=== PATIENT | female | born 1935 | race Two or more races ===

== ENCOUNTER → 2017-07-04 | Outpatient (CLI) | payer OTHER | LOC: FIMAGING 13:51 → EDSTATUS 13:52 | PROVIDERS: ATTEND Internal Medicine | DX: J98.4 Other disorders of lung (principal); I70.90 Unspecified atherosclerosis; M81.0 Age-related osteoporosis without current pathological fracture; R76.11 Nonspecific reaction to tuberculin skin test without active tuberculosis ==

== ENCOUNTER 2017-10-18 17:28 | Observation (INO) | payer OTHER ==
[2017-10-18] MEDS ORDERED: NS 500 ML IV ONE (18:00)
[2017-10-18 18:56] LABS: PLATELET COUNT 246 10^3/uL (150-400)
--- NOTE | 2017-10-18 19:16 | EDPHY ---
HPI/HX/ROS/PE/MDM Narrative: CHIEF COMPLAINT: Weakness, abnormal ECG HISTORY OF PRESENT ILLNESS: This patient is an 82 y/o female with history of hypertension arriving at the request of her primary care provider for evaluation of weakness and an abnormal EKG. Today, she visited her PCP for a routine followup. She happened to be feeling poorly today, which she describes as primarily weakness. She was noted to be in atrial flutter during her visit. She denies any known history of atrial flutter or atrial fibrillation. Currently, the patient feels completely normal. She denies fever, chills, chest pain, shortness of breath, palpitations , vomiting, diarrhea, urinary complaints, headache, lightheadedness. REVIEW OF SYSTEMS: Aside from elements discussed in the HPI, a comprehensive 10-point review of systems was reviewed and is negative. PAST MEDICAL HISTORY: Hypertension (HCTZ) SOCIAL HISTORY: , at bedside. 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 VITAL SIGNS: Reviewed by me GENERAL: Well-developed, well-nourished, resting comfortably in no respiratory distress. HEENT: Atraumatic. Eyes: No icterus, no injection. Mouth: moist mucous membranes. No erythema or lesions. Neck: supple with no adenopathy. LUNGS: Clear to auscultation bilaterally, no wheezes, rhonchi or rales. CARDIAC: Irregularly irregular rhythm. No rubs, murmurs or gallops. ABDOMEN: Soft, nontender, nondistended, bowel sounds normal. BACK: No CVA tenderness. EXTREMITIES: No trauma. No edema. Range of motion is normal throughout. NEURO: Alert and oriented, grossly nonfocal. SKIN: Warm and dry, no rash. PSYCHIATRIC: Normal mentation, no agitation. Portions of this note were transcribed by a phlebotomist medical lab assistant. I personally performed a history, physical exam, medical decision making, and confirmed accuracy of information the transcribed note. ED Course: 82 y/o female presents for evaluation of weakness, new-onset atrial flutter. Plan for EKG. Plan for labs including CBC, chemistries, troponin. Discussed possibility of admission for evaluation of new-onset atrial flutter. The patient and her are amenable to this. 12-LEAD EKG: Please see the full report in [facility]. My interpretation: Atrial flutter with variable rate. POC troponin negative. Labs otherwise unremarkable. 19:49 Spoke with hospitalist service. Dr. Vazquez accepts admission for atrial flutter, atrial fibrillation. He recommends single dose of Lovenox this evening and patient will see Cardiology in the morning for consideration of conversion. MDM: Differential diagnoses for the patient's sensation of palpitations was considered including but not limited to sinus tachycardia, PACs, PVCs, SVT, atrial fibrillation, atrial flutter, anxiety, panic attack. - Data Points Laboratory Results: Laboratory Results 10/18/17 18:30 10/18/17 18:30 10/18/17 10/18/17 10/18/17 18:37 18:30 18:30 WBC RBC Hgb Hct MCV MCH MCHC RDW Plt Count MPV Neut % (Auto) Lymph % (Auto) [place] % (Auto) Eos % (Auto) Baso % (Auto) Nucleat RBC Rel Count Absolute Neuts (auto) Absolute Lymphs (auto) Absolute Monos (auto) Absolute Eos (auto) Absolute Basos (auto) Absolute Nucleated RBC Immature Gran % Immature Gran # Sodium 137 mEq/L mEq/L (135-145) Potassium 4.1 mEq/L mEq/L (3.3-5.0) Chloride 104 mEq/L mEq/L (97-110) Carbon Dioxide 24 mEq/l mEq/l (22-31) Anion Gap 9 mEq/L mEq/L (8-16) BUN 18 mg/dL mg/dL (7-23) Creatinine 0.6 mg/dL mg/dL (0.6-1.0) Estimated GFR > 60 Glucose 81 mg/dL mg/dL (70-100) Calcium 9.6 mg/dL mg/dL (8.5-10.4) Magnesium 2.0 mg/dL mg/dL (1.6-2.3) POC Troponin I 0.01 ng/mL ng/mL (0.00-0.08) 10/18/17 18:30 WBC 5.81 10^3/uL 10^3/uL (3.80-9.50) RBC 4.70 10^6/uL 10^6/uL (4.18-5.33) Hgb 14.0 g/dL g/dL (12.6-16.3) Hct 41.4 % % (38.0-47.0) MCV 88.1 fL fL (81.5-99.8) MCH 29.8 pg pg (27.9-34.1) MCHC 33.8 g/dL g/dL (32.4-36.7) RDW 13.4 % % (11.5-15.2) Plt Count 246 10^3/uL 10^3/uL (150-400) MPV 10.3 fL fL (8.7-11.7) Neut % (Auto) 39.4 % % (39.3-74.2) Lymph % (Auto) 48.7 % H % (15.0-45.0) [place] % (Auto) 9.0 % % (4.5-13.0) Eos % (Auto) 1.7 % % (0.6-7.6) Baso % (Auto) 1.0 % % (0.3-1.7) Nucleat RBC Rel Count 0.0 % % (0.0-0.2) Absolute Neuts (auto) 2.29 10^3/uL 10^3/uL (1.70-6.50) Absolute Lymphs (auto) 2.83 10^3/uL 10^3/uL (1.00-3.00) Absolute Monos (auto) 0.52 10^3/uL 10^3/uL (0.30-0.80) Absolute Eos (auto) 0.10 10^3/uL 10^3/uL (0.03-0.40) Absolute Basos (auto) 0.06 10^3/uL 10^3/uL (0.02-0.10) Absolute Nucleated RBC 0.00 10^3/uL 10^3/uL (0-0.01) Immature Gran % 0.2 % % (0.0-1.1) Immature Gran # 0.01 10^3/uL 10^3/uL (0.00-0.10) Sodium Potassium Chloride Carbon Dioxide Anion Gap BUN Creatinine Estimated GFR Glucose Calcium Magnesium POC Troponin I Medications Given: Potassium Chloride/Sodium Chloride (Ns W/ 20 Kcl/L) 1,000 mls @ 100 mls/hr IV CONT STEPHANIE Stop: 04/16/18 23:54 Last Admin: 10/18/17 23:03 Dose: 1,000 mls Discontinued Medications Sodium Chloride (Ns) 500 mls @ 1,000 mls/hr IV EDNOW ONE PRN Reason: Protocol Stop: 10/18/17 18:29 Last Admin: 10/18/17 18:13 Dose: 500 mls Point of Care Test Results: Chemistry 10/18/17 18:37 POC Troponin I 0.01 ng/mL ng/mL (0.00-0.08) General Time Seen by Provider: 10/18/17 17:48 Initial Vital Signs: Initial Vital Signs Temperature (C) 36.4 C 10/18/17 17:36 Heart Rate 82 10/18/17 17:36 Respiratory Rate 18 10/18/17 17:36 Blood Pressure 150/93 H 10/18/17 17:36 O2 Sat (%) 98 10/18/17 17:36 O2 Delivery Mode Room Air Allergies/Adverse Reactions: No Known Allergies Allergy (Verified 10/18/17 17:34) Home Medications: Medication Instructions Recorded Acetaminophen [Tylenol 325mg (*)] 325 mg PO DAILY PRN 10/18/17 Cholecalciferol Vit D3 [Vitamin D3 1,000 units PO DAILY 10/18/17 (*)] Herbals/Supplements -Info Only 1 ea PO DAILY 10/18/17 Hydrochlorothiazide [HCTZ (*)] 25 mg PO DAILY 10/18/17 Departure - Departure Disposition: [facility] Inpatient Acute Clinical Impression: Atrial flutter Qualifiers: Atrial flutter type: unspecified Qualified Code(s): I48.92 - Unspecified atrial flutter Atrial fibrillation Qualifiers: Atrial fibrillation type: unspecified Qualified Code(s): I48.91 - Unspecified atrial fibrillation Condition: Fair Report Scribed for: Vivi Vasquez Report Scribed by: Karen Cuello Date of Report: 10/18/17 Time of Report: 19:31
[2017-10-18] MEDS ORDERED: ONDANSETRON 4 MG/2 ML VIAL IVP PRN (19:50)
[2017-10-18] MEDS ORDERED: ACETAMINOPHEN 325 MG TAB PO PRN (19:50)
[2017-10-18] MEDS ORDERED: ONDANSETRON DISINTEGRATING 4 MG TAB PO PRN (19:50)
--- NOTE | 2017-10-18 22:38 | CPEKG ---
Test Reason : OPEN Blood Pressure : / mmHG Vent. Rate : 074 BPM Atrial Rate : 341 BPM P-R Int : 060 ms QRS Dur : 086 ms QT Int : 355 ms P-R-T Axes : 000 014 -34 degrees QTc Int : 394 ms Atrial fibrillation , atrial flutter Nonspecific T abnormalities, inferior leads Confirmed by Vivi Vasquez ([id number]) on 10/18/2017 10:37:41 PM Referred By: Confirmed By:Vivi Vasquez
[2017-10-18] MEDS: NS W/ 20 KCl/L 1,000 ML IV SCH (23:03)
--- NOTE | 2017-10-18 23:37 | PDGENHP ---
History and Physical - Chief Complaint Palpitations - History of Present Illness 82 yo F w/ hx of HTN presents from PCP office with reports of arrhythmia. Patient had a general checkup today. She felt fatigued this morning with some palpitations. Her PCP check an ECG and noted Aflutter with variable block so she was sent to the ED for further evaluation. The patient denies any symptoms to me at the time of my evaluation despite still being in Aflutter on the monitor. She tells me she occasionally feels this weakness and palpitations but that the feeling usually passes as it did today. She has no prior formal diagnosis of arrhythmia. Case discussed with Dr. Vazquez, records reviewed in EMR. History Information - Allergies/Home Medication List Allergies/Adverse Reactions: No Known Allergies Allergy (Verified 10/18/17 17:34) Home Medications: Acetaminophen [Tylenol 325mg (*)] 325 mg PO DAILY PRN 10/18/17 [Last Taken Unknown] Cholecalciferol Vit D3 [Vitamin D3 (*)] 1,000 units PO DAILY 10/18/17 [Last Taken 10/18/17] Herbals/Supplements -Info Only 1 ea PO DAILY 10/18/17 [Last Taken Unknown] Hydrochlorothiazide [HCTZ (*)] 25 mg PO DAILY 10/18/17 [Last Taken 10/18/17] I have personally reviewed and updated: family history, medical history - Past Medical History hypertension - Surgical History Reports: no pertinent surgical hx - Family History Additional family history: Valvular disease - Social History Smoking Status: Never smoked Review of Systems Review of Systems: ROS: 10pt was reviewed & negative except for what was stated in HPI & below Physical Exam Physical Exam: Temp Pulse Resp BP Pulse Ox 36.4 C 91 16 152/99 H 98 10/18/17 21:15 10/18/17 23:12 10/18/17 21:15 10/18/17 21:15 10/18/17 21:15 Constitutional: no apparent distress, not in pain Eyes: PERRL, EOMI Ears, Nose, Mouth, Throat: moist mucous membranes, no oral mucosal ulcers Cardiovascular: no murmur, rub, or gallop, irregularly irregular Respiratory: no respiratory distress, clear to auscultation Gastrointestinal: normoactive bowel sounds, soft, non-tender abdomen Skin: warm, normal color Musculoskeletal: full muscle strength, no muscle tenderness Neurologic: AAOx3, CN II-XII Intact Psychiatric: interacting appropriately, not anxious Lab Data & Imaging Review 10/18/17 18:30 10/18/17 18:30 WBC 5.81 10^3/uL (3.80-9.50) 10/18/17 18:30 RBC 4.70 10^6/uL (4.18-5.33) 10/18/17 18:30 Hgb 14.0 g/dL (12.6-16.3) 10/18/17 18:30 Hct 41.4 % (38.0-47.0) 10/18/17 18:30 MCV 88.1 fL (81.5-99.8) 10/18/17 18: MCH 29.8 pg (27.9-34.1) 10/18/17 18: MCHC 33.8 g/dL (32.4-36.7) 10/18/17 18: RDW 13.4 % (11.5-15.2) 10/18/17 18: Plt Count 246 10^3/uL (150-400) 10/18/17 18:30 MPV 10.3 fL (8.7-11.7) 10/18/17 18:30 Neut % (Auto) 39.4 % (39.3-74.2) 10/18/17 18: Lymph % (Auto) 48.7 % (15.0-45.0) H 10/18/17 18:30 [place] % (Auto) 9.0 % (4.5-13.0) 10/18/17 18: Eos % (Auto) 1.7 % (0.6-7.6) 10/18/17 18:30 Baso % (Auto) 1.0 % (0.3-1.7) 10/18/17 18: Nucleat RBC Rel Count 0.0 % (0.0-0.2) 10/18/17 18:30 Absolute Neuts (auto) 2.29 10^3/uL (1.70-6.50) 10/18/17 18:30 Absolute Lymphs (auto) 2.83 10^3/uL (1.00-3.00) 10/18/17 18: Absolute Monos (auto) 0.52 10^3/uL (0.30-0.80) 10/18/17 18:30 Absolute Eos (auto) 0.10 10^3/uL (0.03-0.40) 10/18/17 18:30 Absolute Basos (auto) 0.06 10^3/uL (0.02-0.10) 10/18/17 18:30 Absolute Nucleated RBC 0.00 10^3/uL (0-0.01) 10/18/17 18:30 Immature Gran % 0.2 % (0.0-1.1) 10/18/17 18:30 Immature Gran # 0.01 10^3/uL (0.00-0.10) 10/18/17 18:30 Sodium 137 mEq/L (135-145) 10/18/17 18:30 Potassium 4.1 mEq/L (3.3-5.0) 10/18/17 18:30 Chloride 104 mEq/L (97-110) 10/18/17 18:30 Carbon Dioxide 24 mEq/l (22-31) 10/18/17 18:30 Anion Gap 9 mEq/L (8-16) 10/18/17 18:30 BUN 18 mg/dL (7-23) 10/18/17 18:30 Creatinine 0.6 mg/dL (0.6-1.0) 10/18/17 18:30 Estimated GFR > 60 10/18/17 18:30 Glucose 81 mg/dL (70-100) 10/18/17 18:30 Calcium 9.6 mg/dL (8.5-10.4) 10/18/17 18:30 Magnesium 2.0 mg/dL (1.6-2.3) 10/18/17 18:30 POC Troponin I 0.01 ng/mL (0.00-0.08) 10/18/17 18:37 Visualized and Interpreted EKG results: Yes EKG Interpretation: Positive for: other (Aflutter) Assessment & Plan Assessment: 82 yo F w/ hx of HTN presents with Aflutter. Plan: 1. Aflutter - New diagnosis for this patient; time of onset is unclear as patient tells me she occasionally experiences palpitations and has for some time. She felt fatigued this morning but is now asymptomatic despite ongoing flutter on the monitor. She is rate controlled and hemodynamically stable without medication. [id number] of 4 for HTN, age, and female sex. - Admit for observation - Monitor on telemetry, trend cardiac enzymes - TTE for further evaluation - Will consult cardiology to consider next steps 2. HTN - Continue home medications pending reconciliation. Diet - NPO @ MN in case of cardioversion Code - Full Ppx - LMWH Dispo - Admit under observation status
[2017-10-19] MEDS: NS W/ 20 KCl/L 1,000 ML IV SCH (09:00)
[2017-10-19] MEDS ORDERED: ENOXAPARIN 60 MG/0.6 ML SYR SC SCH (09:45)
--- NOTE | 2017-10-19 14:54 | PDDCSUM ---
Discharge Summary Discharge Summary: Admission Date: 10/18/2017 Discharge Date: 10/19/2017 Admission/Discharge Diagnoses: A Flutter, Moderate MR, Severe TR Consults: Cardiology Procedures: TTE Followup: Cardiology, CTS Hospital Course: Mrs. Oquendo is an 82 yo F who presented to [facility] for evaluation of newly diagnosed A Flutter. Patient reports she has been experiencing intermittent palpitations. She presented to PCP where EKG was performed which showed A Flutter with HR in 80's. Cardiology was consulted who recommended patient be placed on Elaquis due to elevated CHADsVASC score and low dose Metoprolol. She is to followup with Cardiology as an OP to determine definite management for A Flutter. TTE was also performed which showed normal EF, moderate MR, mod-severe TR, dilated R and L atria. CT surgery is to followup with patient as an OP for valve replacement evaluation. Time spent on discharge was >35 minutes with >50% of time spent on patient education/counseling.
--- NOTE | 2017-10-19 15:21 | ECHO ---
[email or web address] [address] [address] Main: [phone] Fax: Transthoracic Echocardiogram Name: SWAPNA TSANG MR#: [id number] Study Date: 10/19/2017 Study Time: 07:46 AM Date of : 1935 Age: 82 year(s) Height: 152.4 cm (60 in.) Weight: 53.07 kg (117 lb.) BSA: 1.49 m2 Gender: Female Examination: Echo Indication: New Afib/flutter Image Quality: Contrast: Requested by: Toni James BP: 140 mmHg/86 mmHg Heart Rate: Rhythm: Indication: New Afib/flutter Procedure Staff Template Worker: Jihan Boone [place] Reading Physician: Cuauhtemoc Galindo MD Requesting Provider: Conclusions: Normal size left ventricle. The ejection fraction is estimated to be 60-65 %. No regional wall motion abnormality. Normal diastolic LV function. The left atrium is moderately dilated. The right atrium is mildly dilated. Mild mitral valve leaflet calcification is present. Moderate mitral valve regurgitation is present. Borderline posterior mitral leaflet prolapse.. Mild aortic cusp calcification is noted. Trivial aortic valve regurgitation. Moderate to severe tricuspid valve regurgitation. The pulmonary artery pressure is normal. No prior study for comparison. Measurements: Chambers Valvular Assessment AV/MV Valvular Assessment TV/PV Normal Normal Normal Name Value Range Name Value Range Name Value Range Ao Yessi (MM): 2.8 cm (2.2 cm-3.7 AV Vmax: 0.97 m/s (1 m/s-1.7 TR Vmax: 2.55 mm/s ( - ) cm) m/s) TR PGmax: 26 mmHg ( - ) IVSd (2D): 0.7 cm (0.6 cm-1.1 AV meanP mmHg ( - ) syst. PAP: 31 mmHg ( - ) cm) HIRA (VTI): 1.4 cm ( - ) LVDd (2D): 4.3 cm (3.9 cm-5.3 MV E Vmax: 0.79 m/s ( - ) cm) MV A Vmax: 0.36 m/s ( - ) LVDs (2D): 3.0 cm (2.1 cm-4 MV E/A: 2.19 ( - ) cm) MV meanP mmHg ( - ) LVPWd (2D): 0.6 cm ( - ) MVA (Vmax): 1.6 m/s ( - ) LVOTd 1.8 cm 1.8 cm mm LVEF (MOD4): 63 % (>=55 %) Patient: SWAPNA TSANG Study Date: 10/19/2017 Page 1 of 2 07:46 AM EF Range: 60-65 % Continued Measurements: Chambers Valvular Assessment AV/MV Valvular Assessment TV/PV Name Value Name Value Name Value LADs: 3.5 cm MV Annulus: 2.8 cm CVP (est.): 5 mmHg LADs Lon.6 cm MV E/E' Lateral: 6.90 LA Area: 22.3 cm2 MV VTI: 19.10 cm MR Vena Contracta: 0.6 cm MR PISA radius: 8 mm Findings: Left Ventricle: Normal size left ventricle. No LV hypertrophy. Normal global systolic LV function. The ejection fraction is estimated to be 60-65 %. No regional wall motion abnormality. Normal diastolic LV function. Right Ventricle: Normal size right ventricle. Left Atrium: The left atrium is moderately dilated. Right Atrium: The right atrium is mildly dilated. Mitral Valve: Mild mitral valve leaflet calcification is present. Moderate mitral valve regurgitation is present. Borderline posterior mitral leaflet prolapse.. Aortic Valve: The aortic valve is tri-leaflet. Mild aortic cusp calcification is noted. Trivial aortic valve regurgitation. Tricuspid Valve: The tricuspid valve is normal in appearance and function. Moderate to severe tricuspid valve regurgitation. The pulmonary artery pressure is normal. Pulmonic Valve: The pulmonic valve is normal in appearance and function. Trivial pulmonic valve regurgitation. Aorta: The aorta is normal. Pericardium: No pericardial effusion. (No Signature Object) Patient: SWAPNA TSANG Study Date: 10/19/2017 Page 2 of 2 07:46 AM [id number]
--- NOTE | 2017-10-19 16:02 | PDCARCONS ---
Cardiology Consult Reason for Consult: Newly noted atrial flutter with symptoms Chief Complaint: palpitations Requesting Physician: hospitalist team History of Present Illness: Patient is a 82 year old female with a history of HTN though no other significant past medical history including DM, CAD, or HLP who presented to ER yesterday for new onset aflutter ([id number] score of 4 for HTN, age, and sex, started on lovenox). Yesterday patient had a 15 minute episode of weakness and "tremor through her body" at rest. She did not have diaphoresis, chest pain or pressure, syncope, lightheadedness, or dyspnea during event. She had a routine appointment with her PCP later in the day and EKG showed aflutter, prompting referral to ER. She has had infrequent palpitations for several years that happen less than once a month and don't seem to be triggered by anything. They seem to be happening more frequently and this was the worst she had experienced. Patient has never seen quality assurance/r&d lab technician or had a workup for these palpitations. She is taking HCTZ as directed for her HTN and does not take any other medications. Heart rate during her hospital stay has been controlled (80s ) with blood pressures elevated (140-150/80s mmHg). Patient has no symptoms today including palpitations though she remains in aflutter rhythm. Patient was given lovenox. Echo 10/19/17 showed moderate to severe mitral regurgitation and tricuspid regurgitation with enlarged atria bilaterally. Remainder of 12 point review of systems was unremarkable History Information - Allergies/Home Medication List Allergies/Adverse Reactions: No Known Allergies Allergy (Verified 10/18/17 17:34) Home Medications: Acetaminophen [Tylenol 325mg (*)] 325 mg PO DAILY PRN 10/18/17 [Last Taken Unknown] Cholecalciferol Vit D3 [Vitamin D3 (*)] 1,000 units PO DAILY 10/18/17 [Last Taken 10/18/17] Herbals/Supplements -Info Only 1 ea PO DAILY 10/18/17 [Last Taken Unknown] Hydrochlorothiazide [HCTZ (*)] 25 mg PO DAILY 10/18/17 [Last Taken 10/18/17] I have personally reviewed and updated: family history, medical history, social history, surgical history Past Medical History: - Past Medical History atrial fibrillation (atrial flutter), hypertension - Surgical History Reports: no pertinent surgical hx - Family History Positive for: non-pertinent - Social History Smoking Status: Never smoked Alcohol Use: None Drug Use: None Cardiac History - Cardiac History Past Cardiac History: MVR, TVR Cardiac Risk Factors: hypertension (>140/90), age > 65 Timing/Duration: Days Severity: moderate Severity Scale: 4 Modifying Factors: improves with: rest Associated Symptoms: weakness Age in Years: 75 or older Sex: Female Congestive Heart Failure History: No Hypertension History: Yes Stroke/TIA/Thromboembolism History: No Vascular Disease History: No Diabetes Mellitus: No [id number] Score: 4 Physical Exam Physical Exam: Temp Pulse Resp BP Pulse Ox 36.5 C 86 18 150/87 H 97 10/19/17 11:25 10/19/17 11:25 10/19/17 11:25 10/19/17 11:25 10/19/17 11:25 Constitutional: no apparent distress, appears nourished, not in pain Eyes: PERRL, EOMI Ears, Nose, Mouth, Throat: moist mucous membranes, hearing normal Cardiovascular: irregularly irregular, pulses symmetric bilaterally, No JVD, No edema Peripheral Pulses: 2+: dorsalis-pedis (R), dorsalis-pedis (L) Respiratory: no respiratory distress, clear to auscultation Gastrointestinal: normoactive bowel sounds Skin: warm Musculoskeletal: full muscle strength, normal joint ROM Neurologic: AAOx3, sensation intact bilaterally Psychiatric: interacting appropriately, anxious Lab and Imaging 10/18/17 18:30 10/19/17 03:28 WBC 5.81 10^3/uL (3.80-9.50) 10/18/17 18:30 RBC 4.70 10^6/uL (4.18-5.33) 10/18/17 18:30 Hgb 14.0 g/dL (12.6-16.3) 10/18/17 18:30 Hct 41.4 % (38.0-47.0) 10/18/17 18:30 MCV 88.1 fL (81.5-99.8) 10/18/17 18:30 MCH 29.8 pg (27.9-34.1) 10/18/17 18:30 MCHC 33.8 g/dL (32.4-36.7) 10/18/17 18:30 RDW 13.4 % (11.5-15.2) 10/18/17 18:30 Plt Count 246 10^3/uL (150-400) 10/18/17 18:30 MPV 10.3 fL (8.7-11.7) 10/18/17 18:30 Neut % (Auto) 39.4 % (39.3-74.2) 10/18/17 18:30 Lymph % (Auto) 48.7 % (15.0-45.0) H 10/18/17 18:30 [place] % (Auto) 9.0 % (4.5-13.0) 10/18/17 18:30 Eos % (Auto) 1.7 % (0.6-7.6) 10/18/17 18:30 Baso % (Auto) 1.0 % (0.3-1.7) 10/18/17 18:30 Nucleat RBC Rel Count 0.0 % (0.0-0.2) 10/18/17 18:30 Absolute Neuts (auto) 2.29 10^3/uL (1.70-6.50) 10/18/17 18:30 Absolute Lymphs (auto) 2.83 10^3/uL (1.00-3.00) 10/18/17 18:30 Absolute Monos (auto) 0.52 10^3/uL (0.30-0.80) 10/18/17 18:30 Absolute Eos (auto) 0.10 10^3/uL (0.03-0.40) 10/18/17 18:30 Absolute Basos (auto) 0.06 10^3/uL (0.02-0.10) 10/18/17 18:30 Absolute Nucleated RBC 0.00 10^3/uL (0-0.01) 10/18/17 18: Immature Gran % 0.2 % (0.0-1.1) 10/18/17 18:30 Immature Gran # 0.01 10^3/uL (0.00-0.10) 10/18/17 18:30 Sodium 141 mEq/L (135-145) 10/19/17 03:28 Potassium 4.2 mEq/L (3.3-5.0) 10/19/17 03:28 Chloride 110 mEq/L (97-110) 10/19/17 03:28 Carbon Dioxide 26 mEq/l (22-31) 10/19/17 03:28 Anion Gap 5 mEq/L (8-16) L 10/19/17 03:28 BUN 15 mg/dL (7-23) 10/19/17 03:28 Creatinine 0.6 mg/dL (0.6-1.0) 10/19/17 03:28 Estimated GFR > 60 10/19/17:28 Glucose 100 mg/dL (70-100) 10/19/17 03:28 Calcium 8.8 mg/dL (8.5-10.4) 10/19/17: Magnesium 1.9 mg/dL (1.6-2.3) 10/19/17:28 POC Troponin I 0.01 ng/mL (0.00-0.08) 10/18/17 18:37 Troponin I < 0.012 ng/mL (0.000-0.034) 10/19/17: TSH 2.010 uIU/mL (0.465-4.680) 10/19/17 03:28 Visualized and Interpreted EKG results: Yes EKG additional interpertation: atrial fibrillation with controlled ventricular response Telemetry: atrial fib/flutter with controlled ventricular response Echocardiogram: normal LVEF with mod to severe MR and TR. Normal RVSP. Moderate biatrial enlargement A/P Assessment: Assessment: Patient is an 82 year old female with a history of HTN and newly diagnosed aflutter. Given Echo with moderate to severe MR and TR as well as atrial enlargement and patient's history of palpitations, likely not a new onset of aflutter. Patient stable and asymptomatic today. Lovenox therapy has been started, but would convert patient to oral therapy. The degree of valvular pathology is likely to (a) progress and (b) continue to contribute to the arrhythmia noted. Plan: (1) With [id number] score of 4, would recommend anticoagulation with NOAC for at least 3 weeks before considering cardioversion versus lifelong therapy (2) Would recommend low dose metoprolol to help with rate control and slightly elevated blood pressures. (3) Continue HCTZ for HTN. (4) Follow up on labs drawn in the outpatient setting (specifically lipid panel and LFTs) to determine if patient would be a candidate for statin therapy. (5) Would arrange for patient to be seen in the outpatient setting by both cardiology (for assessment of tolerance to anticoagulant therapy) as well as CT surgery (for further discussion about the likely need to have mitral and tricuspid valve surgery. Plan: Patient could be discharged to home with aforementioned outpatient follow up arranged.
--- NOTE | 2017-10-19 16:19 | ASMTCASEMG ---
Living Arrangements What is your living Answers: With Spouse arrangement? Who do you live with? Type Of Residence What kind of residence do Answers: House you live in? Discharge Plan Comments Coordination Status Comments Notes: Pt is a 82 y/o female admitted for afib and aflutter. Pt went to the [facility] today. Pt is currently being evaluated by CT surgery. Pt will most likely d/c independent when medically stable. No therapies ordered at this time. CM available for changes. Plan: Independent Date Signed: 10/19/2017 04:18 PM Electronically Signed By:PEDRO PABLO Lang
--- NOTE | 2017-10-19 16:24 | ASMTLACE ---
LACE Length of stay for Answers: 1 day current admission Acuity / Level of Answers: No Care: Did the patient have an inpatient admission? Comorbidities - select Answers: Other Notes: HTN; AFib all that apply # of Emergency department Answers: 1-2 visits in the last 6 months Score: 3 Date Signed: 10/19/2017 04:23 PM Electronically Signed By:PEDRO PABLO Lang
[2017-10-19 16:25] VITALS: BP 134/87
[2017-10-19] MEDS ORDERED: METOPROLOL TARTRATE 25 MG TAB PO SCH (21:00)
[2017-10-19] MEDS ORDERED: APIXABAN 2.5 MG TAB PO SCH (21:00)
== END 2017-10-19 17:49 | disposition home or self-care (01) ==
LOC: F2W 21:05
PROVIDERS: ADMIT Internal Medicine; ATTEND Internal Medicine
DX: I48.92 Unspecified atrial flutter (principal); I34.0 Nonrheumatic mitral (valve) insufficiency; I36.1 Nonrheumatic tricuspid (valve) insufficiency; I10 Essential (primary) hypertension; E86.9 Volume depletion, unspecified
CPT/HCPCS: 93005; 93306; 96360; 96372; 99285; G0378; J1650; 84484-PO

== ENCOUNTER 2017-11-21 08:31 | Day surgery (SDC) | payer OTHER ==
[2017-11-21] MEDS ORDERED: MIDAZOLAM 2 MG/2 ML VIAL IVP ONE (08:36)
[2017-11-21] MEDS ORDERED: ATROPINE SULFATE 1 MG/10 ML SYR IVP ONE (08:36)
[2017-11-21] MEDS ORDERED: NS 500 ML IV ONE (08:36)
[2017-11-21] MEDS ORDERED: BENZOCAINE UNIT DOSE SPRAY HURRICAINE MM ONE (08:36)
[2017-11-21] MEDS ORDERED: fentaNYL 100 MCG/2 ML INJ IVP ONE (08:36)
--- NOTE | 2017-11-21 08:59 | PDGENHP ---
History & Physical Chief Complaint: AF and valvular heart disease History of Present Illness: 82-year-old female with atrial fibrillation and mitral and tricuspid regurgitation. Presents for BATSHEVA guided cardioversion. Pertinent Past, Social, Family History: Reviewed Cardiorespiratory Assessment: Stable
--- NOTE | 2017-11-21 09:20 | CPEKG ---
Test Reason : OPEN Blood Pressure : / mmHG Vent. Rate : 069 BPM Atrial Rate : 000 BPM P-R Int : 192 ms QRS Dur : 086 ms QT Int : 406 ms P-R-T Axes : 000 058 -56 degrees QTc Int : 435 ms Atrial fibrillation Nonspecific T abnormalities, lateral leads Confirmed by Shirley Kumar ([id number]) on 11/21/2017 9:20:28 AM Referred By: Confirmed By:Shirley Kumar
[2017-11-21 09:28] LABS: INR 1.28 (0.83-1.16); PROTIME(PATIENT) 16.2 SEC (12.0-15.0)
[2017-11-21] MEDS ORDERED: PROPOFOL 200 MG/20 ML VIAL ONE (10:10)
[2017-11-21] MEDS ORDERED: LIDOCAINE 2% 2 ML INJ ONE (10:10)
--- NOTE | 2017-11-21 10:13 | PDANEPAE ---
ANE History of Present Illness ky/cv ANE Past Medical History - Cardiovascular History Hx Hypertension: Yes Hx Arrhythmias: No Hx Chest Pain: No Hx Coronary Artery / Peripheral Vascular Disease: No Hx CHF / Valvular Disease: Yes Hx Palpitations: No - Pulmonary History Hx COPD: No Hx Asthma/Reactive Airway Disease: No Hx Recent Upper Respiratory Infection: No Hx Oxygen in Use at Home: No Hx Sleep Apnea: No - Neurologic History Hx Cerebrovascular Accident: No Hx Seizures: No Hx Dementia: No - Endocrine History Hx Diabetes: No Hypothyroid: No Hyperthyroid: No Obesity: no - Renal History Hx Renal Disorders: No - Liver History Hx Hepatic Disorders: No - Neurological & Psychiatric Hx Hx Neurological and Psychiatric Disorders: No - Chronic Pain History Chronic Pain: No ANE Review of Systems Review of Systems: - Exercise capacity Exercise capacity: >=4 METS ANE Patient History - Allergies Allergies/Adverse Reactions: No Known Allergies Allergy (Verified 10/18/17 17:34) - Home Medications Home medications: home medication list seen and reviewed Home Medications: Acetaminophen [Tylenol 325mg (*)] 325 mg PO DAILY PRN 10/18/17 [Last Taken Unknown] Cholecalciferol Vit D3 [Vitamin D3 (*)] 1,000 units PO DAILY 10/18/17 [Last Taken 10/18/17] Herbals/Supplements -Info Only 1 ea PO DAILY 10/18/17 [Last Taken Unknown] Hydrochlorothiazide [HCTZ (*)] 25 mg PO DAILY 10/18/17 [Last Taken 10/18/17] - NPO status NPO Status: no food or drink >8 hours - Anes Hx Anes Hx: no prior problems - Smoking Hx Smoking Status: Never smoked ANE Labs/Vital Signs - Labs Result Diagrams: 11/21/17 09:00 - Vital Signs Height: 152 cm Weight: 52.2 kg ANE Physical Exam - Airway Mallampati Score: Class 2 Mouth exam: normal dental/mouth exam - Pulmonary Pulmonary: no respiratory distress - Cardiovascular Cardiovascular: irregularly irregular - ASA Status ASA Status: II ANE Anesthesia Plan Anesthesia Plan: GA with mask, MAC
[2017-11-21] MEDS ORDERED: ALBUTEROL 3 ML DEYVIAL IH PRN (10:38)
[2017-11-21] MEDS ORDERED: NALOXONE HCL 0.4 MG/ML INJ IVP PRN (10:38)
--- NOTE | 2017-11-21 10:39 | POSTANESTH ---
Post Anesthetic Evaluation Cardiovascular Status: Normal, Stable Respiratory Status: Normal, Stable Level of Consciousness/Mental Status: Can Participate in Eval Pain Control: Adequate, Prn Tx Ordered Nausea/Vomiting Control: Adequate, Prn Tx Ordered Complications Possibly Related to Anesthesia: None Noted
--- NOTE | 2017-11-21 10:40 | PDTEE1 ---
BATSHEVA Cardioversion Procedure Procedure: electrical cardioversion, transesophageal echo Indications: atrial fibrillation Consent: signed and in chart Anticoagulation: eliquis Procedural Details: Sedation provided by the anesthesia service. Pads were placed in anterior- posterior position. BATSHEVA probe was advanced and standard images obtained. There is no evidence of left atrial or left atrial appendage thrombus. Synchronized cardioversion attempt #1: 200J Results: normal sinus rhythm Conclusions: successful BATSHEVA cardioversion Patient Problems: Problems Problem Status Onset Atrial fibrillation Acute Atrial flutter Acute
--- NOTE | 2017-11-22 17:22 | ECHO ---
[email or web address] [address] Main: [phone] Fax: Transesophageal Echocardiography Name: SWAPNA TSANG MR#: [id number] Study Date: 11/21/2017 Study Time: 09:25 AM Date of : 1935 Age: 82 year(s) Height: 152.4 cm (60 in.) Weight: 52.16 kg (115 lb.) BSA: 1.48 m2 Gender: Female Examination: BATSHEVA Indication: Atrial Fibrillation Image Quality: Contrast: Requested by: Shirley Kumar Heart Rate: Rhythm: BP: / Procedure Staff Associate Artistic Director: Jihan Boone [facility] Reading Physician: Shirley Kumar MD Requesting Provider: BATSHEVA Exam Details Conclusions: The ejection fraction is estimated to be 50-55 %. An agitated saline study was performed and was negative for intracardiac shunting. No thrombus in left appendage. Moderate to severe mitral regurgitation. Severe tricuspid regurgitation is present. ELIZABETH measurements 0 degrees 1.6cm width 2.1cm depth 45 degrees 1.6cm width 2.3cm depth 90 degrees 1.5cm width 2.0cm depth 135 degrees 2.2cm width 2.1cm depth . Measurements: Chambers Valvular Assessment AV/MV Valvular Assessment TV/PV Normal Normal Normal Name Value Range Name Value Range Name Value Range EF Range: 50-55 % TR Vmax: 2.69 mm/s ( - ) TR PGmax: 29 mmHg ( - ) syst. PAP: 39 mmHg ( - ) Additional Measurements: Valvular Assessment TV/PV Name Value CVP (est.): 10 mmHg Patient: SWAPNA TSANG Study Date: 11/21/2017 Page 1 of 2 09:25 AM Findings: The ejection fraction is estimated to be 50-55 %. Left Atrium: An agitated saline study was performed and was negative for intracardiac shunting. Left Atrial Appendage: No thrombus in left appendage. Mitral Valve: There is moderate thickening of the mitral valve leaflets. Moderate to severe mitral regurgitation. Borderline posterior mitral leaflet prolapse.. Aortic Valve: The aortic valve is tri-leaflet. There is no aortic valve regurgitation. Tricuspid Valve: Severe tricuspid regurgitation is present. Pulmonic Valve: The pulmonic valve is normal in appearance. Exam Comments: ELIZABETH measurements 0 degrees 1.6cm width 2.1cm depth 45 degrees 1.6cm width 2.3cm depth 90 degrees 1.5cm width 2.0cm depth 135 degrees 2.2cm width 2.1cm depth . l1n (No Signature Object) Patient: SWAPNA TSANG Study Date: 11/21/2017 Page 2 of 2 09:25 AM D:_[id number]
== END 2017-11-21 12:13 | disposition home or self-care (01) ==
LOC: FCATH 08:31
PROVIDERS: ATTEND Internal Medicine Cardiovascular Disease
PROC: B245ZZ4 Ultrasonography of Left Heart, Transesophageal (ICD-10-PCS; principal; 2017-11-21)
PROC: 5A2204Z Restoration of Cardiac Rhythm, Single (ICD-10-PCS; principal; 2017-11-21)
DX: I48.91 Unspecified atrial fibrillation (principal); I10 Essential (primary) hypertension; M81.0 Age-related osteoporosis without current pathological fracture; I08.1 Rheumatic disorders of both mitral and tricuspid valves
CPT/HCPCS: J0461; J2704

== ENCOUNTER 2018-07-16 15:11 | Emergency (ER) | payer OTHER ==
--- NOTE | 2018-07-16 16:04 | EDPHY ---
H & P Smoking Status: Never smoked Time Seen by Provider: 07/16/18 15:45 HPI/ROS: HPI Tripped and fell, struck chin, bleeding from left ear. 83-year-old female by private vehicle with her . 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 She tripped and fell forward on a cement surface striking her right chin. She presents to the emergency department with complaint of a small laceration involving her chin as well as a laceration to her right thumb. She also states that she noticed that she started bleeding from her left ear. She describes having a sensation of numbness just anterior and inferior to the left ear. She denies any neck pain. No other loss of sensation or weakness in her extremities. Denies headache. There was no loss of consciousness. She has had no nausea or vomiting. No confusion according to her . Denies other extremity pain. She is on Eliquis. ROS: Constitutional: No fever, no chills. No weakness. Eyes: No discharge. No changes in vision. ENT: No sore throat. No nasal congestion or rhinorrhea. As above. Respiratory: No cough. No shortness of breath. Cardiac: No chest pain, no palpitations. Gastrointestinal: No abdominal pain, no vomiting, no diarrhea. Genitourinary: No hematuria. No dysuria or increased frequency with urination. Musculoskeletal: No back pain. No neck pain. No myalgias or arthralgias. Skin: No rashes. As above. Neurological: No headache. No focal weakness or altered sensation. Past medical history: Mitral valve regurgitation, cataract surgery, hypertension. Social history: Nonsmoker. Denies alcohol. Here with her . Physical Exam: General Appearance: Alert, no distress. This patient is responding to questions appropriately and in full sentences. This patient appears well- hydrated and well-nourished. Head: Normocephalic atraumatic except for left-sided hemotympanum, on speculum exam of the lacks external auditory canal the tympanic membrane does appear darker more purplish in color versus the right side for comparison, there seems to be a small area of hemorrhage at the 11 o'clock position. The right external auditory canal and right tympanic membrane are unremarkable. Face: Facial bones are stable on palpation. She has a small 0.5 cm to 1 cm laceration, distal under chin on the right side. Eyes: Pupils equal and round and reactive to light, no pallor or injection. No lid erythema or edema. ENT, Mouth: Mucous membranes moist. Dentition is intact. No malocclusion of the jaw. No tongue lacerations or abrasions. Pharynx is clear. The bilateral nasal canals are clear. No septal hematoma. Respiratory: There are no retractions, lungs are clear to auscultation with good air movement bilaterally. Chest wall is stable to AP and lateral palpation. Cardiovascular: Regular rate and rhythm. No murmur. Gastrointestinal: Abdomen is soft and nontender, no masses, bowel sounds normal. Neurological: Motor sensory function is intact. Cranial nerves are normal. Cerebellar function intact. Skin: Warm and dry, no rashes. No lacerations, abrasions or contusions. Musculoskeletal: Neck is supple and nontender. The trachea is midline. No midline cervical, thoracic, lumbar or sacral tenderness on palpation. No flank tenderness on palpation. Left hand exam, significant for a linear laceration, radial aspect distal thumb , not involving the nail bed. There is ecchymosis and some swelling over the interphalangeal joint of the left thumb. There is no pain with axial compression on this or the other 4 digits of the left hand. Extremities are symmetrical, full range of motion except noted. All joints in the bilateral upper and bilateral lower extremities range without pain or impingement except noted. No tenderness on palpation of the long bones in the bilateral upper and bilateral lower extremities except noted. Psychiatric: No agitation. No depression. Database: EKG: Imaging: CT head without contrast: Fracture of the anterior inferior bony margin of the external auditory canal with a small portion of the fracture fragment extending into the external auditory canal. No evidence of basilar skull fracture. No other acute pathology. Results were discussed with staff radiologist Dr. Lew Villareal. Left hand x-ray series: Negative for fracture, subluxation, dislocation. Interpreted by me. Procedures: Emergency department course: Triage vital signs reviewed. She is moderately hypertensive. Vital signs are otherwise normal. IV was placed. Concerning findings on physical exam for basilar skull fracture. CT imaging to be obtained. 5:50 p.m., the patient was re-evaluated, resting comfortably at this time. Repeat neurologic Assessment is nonfocal. Results of her CT imaging and hand x- ray discussed with her. She has had her lacerations on her chin and her left thumb nicely sutured by the physician photography assistant. Please see her note for further details. ENT paged for consult. 6:20 p.m., spoke with ENT specialist Dr. Rodriguez. Case was discussed in detail with her. She reviewed CT imaging. She recommends Ciprodex otic drops to the left ear as well as Augmentin. She will see this patient in clinic on Tuesday for re-evaluation and any further management. 6:30 p.m., patient given her antibiotics as above. Plan for follow-up with ENT discussed with her and her . She does feel comfortable going home at this time. She understands for follow-up. Return to emergency department precautions have been reviewed with her. All of her questions were answered. She was discharged from the emergency department in good condition. Differential Diagnosis: The differential diagnosis on this patient includes but is not limited to basilar skull fracture, right thumb contusion, right thumb laceration, chin laceration. Acute traumatic spinal injury unlikely. This represents a partial list of diagnoses considered. These considerations are based on history, physical exam, past history, reassessment and diagnostic testing. (Jerson Bishop) Constitutional: Initial Vital Signs Temperature (C) 37.0 C 07/16/18 15:25 Heart Rate 84 07/16/18 15:25 Respiratory Rate 18 07/16/18 15:25 Blood Pressure 171/110 H 07/16/18 15:25 O2 Sat (%) 97 07/16/18 15:25 O2 Delivery Mode Room Air Allergies/Adverse Reactions: No Known Allergies Allergy (Verified 10/18/17 17:34) Home Medications: Medication Instructions Recorded Cholecalciferol Vit D3 [Vitamin D3 1,000 units PO DAILY 10/18/17 (*)] Herbals/Supplements -Info Only 1 ea PO DAILY 10/18/17 Hydrochlorothiazide [HCTZ (*)] 25 mg PO DAILY 10/18/17 Apixaban [Eliquis] 2.5 mg PO BID #30 tab 10/19/17 Metoprolol Succinate [Toprol Xl] 12.5 mg PO DAILY #90 tab.er.24h 11/21/17 Amoxicillin/Clavulanate Pot 875 mg PO BID 5 Days tab 07/16/18 [Augmentin 875 mg tab] Medical Decision Making Procedures: I was asked to evaluate this patient and assist with laceration repair. Laceration to the radial aspect of her left thumb, superficial in 2 cm in length. Laceration to her submental region. Laceration Repair Verbal consent obtained by patient. Risks discussed, including but not limited to infection, pain, retained foreign body, need for additional repair, poor cosmetic result, tendon damage, nerve damage, poor wound healing, vascular damage. Alternatives to repair discussed. [place] protocol used to establish correct patient, procedure, equipment, business support, and site. Anesthesia obtained by local infiltration. Anesthetized with 1% lidocaine with epinephrine. Laceration 1.: Radial aspect of left thumb, superficial and 2 cm in length. It does not involve the nail bed or germinal matrix. Laceration 2.: Submental region, 1.5 cm laceration. Repair type simple. Or sutures placed on the left thumb. Four sutures placed in the right submental region. Patient was prepped and draped in usual sterile fashion. Hemostasis achieved with direct pressure. Wound explored through full range of motion and entire depth of wound probed and visualized with gloved finger. No suspicion for nerve damage, tendon damage, underlying fracture, vascular damage, foreign body, or contamination. Area was cleansed with Shur-Clens and irrigated with sterile saline as per protocol. No foreign body or material removed. Repair method 5.0 Prolene. Eight of sutures placed. Well aligned, closely approximated. wound was dressed with antibiotic ointment and dressing. Patient tolerated well with no immediate complications. Wound care: Clean and dry x 24 hours, gently clean with soap and water, cover with topical antibiotic ointment/bandage. Suture/Staple removal: 5-7 Days (Mariama Quiles) - Data Points Laboratory Results: Laboratory Results 07/16/18 16:00 07/16/18 16:00 Medications Given: Discontinued Medications Hydrocodone Bitart/Acetaminophen ([place] 5/325mg Prepack#6) 1 btl TAKEHOME EDNOW ONE Stop: 07/16/18 18:41 Last Admin: 07/16/18 18:55 Dose: 1 btl Amoxicillin/Clavulanate Potassium (Augmentin 875mg) 875 mg PO EDNOW ONE PRN Reason: Protocol Stop: 07/16/18 18:25 Last Admin: 07/16/18 18:55 Dose: 875 mg Ciprofloxacin/Dexamethasone (Ciprodex) 4 drops LEFTEAR BID ONE Stop: 07/16/18 18:25 Last Admin: 07/16/18 18:55 Dose: 4 drops Departure - Departure Disposition: Home, Routine, Self-Care Clinical Impression: Fall from ground level, Chin laceration, Laceration of left thumb, Facial fracture, Fracture left external auditory canal Condition: Good Instructions: Hydrocodone/Acetaminophen (By mouth), Ciprofloxacin/ Dexamethasone (Into the ear), Care For Your Stitches (ED), Laceration (ED), Facial Fracture (ED) Additional Instructions: Read and follow provided instructions. Stitches in chin are to be removed in 5-7 days. Stitches in thumb are to be removed in 10 days. Call the office of ENT specialist Dr. Rodriguez, Tuesday for appointment time in her clinic on Tuesday. The number to call is [phone]. If you have any concerns and need to speak with Dr. Rodriguez directly you can call the same number and will be directed to her. You can also use the number given on the discharge sheet. Ciprodex otic drops: 4 drops to left ear twice daily for 5 days. Augmentin antibiotic: 1 tablet twice daily for 5 days. Narcotic pain medication: 1-2 every 4-6 hours as needed for pain. Continue taking your other medications as prescribed. Return to the emergency department for pain, bleeding, facial swelling or swelling of your ear, fever or other serious concerns. Referrals: Dee Dee Rodriguez MD [Medical Doctor] - As per Instructions Prescriptions: Amoxicillin/Clavulanate Pot [Augmentin 875 mg tab] 875 mg PO BID 5 Days tab
[2018-07-16 16:18] LABS: PLATELET COUNT 202 10^3/uL (150-400)
[2018-07-16] MEDS ORDERED: AMOXICILLIN/CLAVULANATE POT 875/125 MG TAB PO ONE (18:24)
[2018-07-16] MEDS ORDERED: CIPROFLOXACIN HCL/DEXAMETH 7.5 ML OTIC DROPS LEFTEAR ONE (18:24)
[2018-07-16] MEDS ORDERED: HYDROCOD/APAP 5/325 PREPACK#6 BTL TAKEHOME ONE (18:40)
[2018-07-16 19:19] VITALS: BP 165/97
== END 2018-07-16 19:12 | disposition home or self-care (01) ==
PROC: 0HQ1XZZ Repair Face Skin, External Approach (ICD-10-PCS; principal; 2018-07-16)
PROC: 0HQGXZZ Repair Left Hand Skin, External Approach (ICD-10-PCS; principal; 2018-07-16)
DX: S61.012A Laceration without foreign body of left thumb without damage to nail, initial encounter (principal); S01.81XA Laceration without foreign body of other part of head, initial encounter; W01.198A Fall on same level from slipping, tripping and stumbling with subsequent striking against other object, initial encounter; Y92.254 Theater (live) as the place of occurrence of the external cause; Y93.89 Activity, other specified; Z79.01 Long term (current) use of anticoagulants